=== PATIENT | female | born 1955 ===

== ENCOUNTER 2024-07-09 11:51 | Emergency (ER) | payer OTHER ==
[~2024-07-09] VITALS: Ht 154.9 cm; Wt 66.7 kg
[2024-07-09] MEDS ORDERED: EVISTA60 MG PO (13:12)
[2024-07-09] MEDS ORDERED: CRESTOR40 MG PO (13:12)
[2024-07-09] MEDS ORDERED: CHILDREN'S ASPI81 MG PO (13:12)
[2024-07-09] MEDS ORDERED: URSODIOL250 MG PO (13:12)
[2024-07-09] MEDS ORDERED: SPIRONOLACTONE25 MG PO (13:13)
[2024-07-09] MEDS ORDERED: FARXIGA10 MG PO (13:13)
[2024-07-09] MEDS ORDERED: KETOROLAC TROMETHAMINE 30 MG VIAL IM ONE (14:30)
[2024-07-09] MEDS ORDERED: KETOROLAC TROMETHAMINE 30 MG VIAL ONE (14:38)
[2024-07-09 15:08] LABS: HEMATOCRIT 43.7 % (36.0-45.00); HEMOGLOBIN 14.5 g/dL (12.0-15.00); MEAN CELL VOLUME 87.7 fL (80.00-100.00); MEAN CORPUSCULAR HEMOGLOBIN 29.2 pg (27.00-32.0); MEAN CORPUSCULAR HGB CONC 33.3 g/dl (32.0-36.0); PLATELET COUNT 220 K/uL (150-450); RED BLOOD COUNT 4.98 M/uL (4.00-6.00); RED CELL DISTRIBUTION WIDTH 13.7 % (11.5-14.5)
[2024-07-09 15:35] LABS: ALBUMIN 3.9 gm/dL (3.4-5.0); BILIRUBIN TOTAL 0.95 mg/dL (0.3-1.2); CALCIUM 10.3 mg/dL (8.5-10.1); CREATININE SERUM 0.62 mg/dL (0.55-1.02); GFR 96.01; GLOBULINA 3.9 G/DL (2.4-3.5); POTASSIUM 4.06 mEq/L (3.5-5.1); TOTAL PROTEIN 7.8 gm/dL (6.4-8.2)
[2024-07-09 16:21] LABS: PH,URINE 5.5 (5.0-8.0); URINE APPEARANCE Clear; URINE BILIRRUBIN Negative (NEGATIVE); URINE BLOOD Negative; URINE COLOR Yellow; URINE LEUKOCYTE Negative; URINE NITRATE Negative; URINE PROTEIN Negative (NEGATIVE); URINE UROBILINOGEN 0.2 E.U./dl
[2024-07-09 16:24] LABS: URINE BACTERIA 7.3 uL (0.0-1933); URINE EPITHELIAL CELLS 3.4 uL (0.0-38.8); URINE RBC 4.1 uL (0.0-20.8); URINE WBC 2.9 uL (0.0-23.2)
[2024-07-09 16:37] LABS: URINE GLUCOSE >=1000 MG/DL (NEGATIVE); URINE KETONE 40 (NEGATIVE)
== END 2024-07-10 00:10 | disposition home or self-care (01) ==
LOC: ER 11:53
PROVIDERS: General Practice
DX: R10.2 Pelvic and perineal pain (principal); K62.89 Other specified diseases of anus and rectum; R10.9 Unspecified abdominal pain; Z91.013 Allergy to seafood
CPT/HCPCS: 36415; 74176; 96372; 99284; J1885